=== PATIENT | male | born 1985 | race Two or more races ===

== ENCOUNTER 2020-04-08 07:37 | Outpatient (REF) | payer OTHER, SELFPAY ==
[2020-04-08 08:46] LABS: Eosinophils Absolute Auto 0.1 X10*3/uL (0.0-0.4); Eosinophils Percent Auto 2.6 % (0-4); Hematocrit 47.2 % (42-52); Lymphocytes Absolute Auto 1.4 X10*3/uL (1.2-4.9); Lymphocytes Percent Auto 28.5 % (20-40); Mean Corpuscular HGB Conc 33.9 g/dl (31.0-36.0); Mean Corpuscular Hemoglobin 30.7 pg (27.0-33.0); Mean Corpuscular Volume 90.4 fL (80-98); Mean Platelet Volume 10.4 fL (9.4-12.4); Monocytes Absolute Auto 0.4 X10*3/uL (0.1-1.2); Monocytes Percent Auto 7.9 % (2-11); Neutrophils Absolute Auto 3.1 X10*3/uL (2.0-8.3); Platelet Count 226 X10*3/uL (160-400); Red Blood Count 5.22 X10*6/uL (4.60-5.80); Red Cell Distribution Width 13.1 % (11.0-16.0); White Blood Count 5.1 X10*3/uL (4.8-10.8)
[2020-04-08 08:48] LABS: MANUAL DIFF FLAG NO
[2020-04-08 09:29] LABS: Alanine Aminotransferase 41 U/L (0-40); Albumin Level 4.4 g/dL (3.5-5.0); Alkaline Phosphatase 75 U/L (39-117); Anion Gap 9 (12-20); Aspartate Amino Transferase 22 U/L (5-37); Bilirubin Total 1.1 mg/dL (0.0-1.0); Blood Urea Nitrogen 17 mg/dL (9-16); Carbon Dioxide 30 mmol/L (22-29); Chloride 105 mmol/L (96-108); Cholesterol 182 mg/dL; Estimated Glomerular Filt Rate > 60; Glucose Fasting 88 mg/dL (60-99); HDL Cholesterol 45 mg/dL; LDL Cholesterol Calculated 115 mg/dl; Potassium 4.4 mmol/l (3.3-5.1); Sodium 140 mmol/L (135-145); Total Protein 6.9 g/dL (6.5-8.0); Triglycerides 114 mg/dL
[2020-04-08 09:48] LABS: Glucose Urine UA NEG (NEG); Leukocyte Esterase Urine NEG (NEG); Nitrite Urine NEG (NEG); PH 5.5 (5.0-8.0); Specific Gravity - Urine >= 1.030 (1.005-1.025); Urine Blood NEG (NEG); Urine Ketones NEG (NEG); Urine Protein NEG (NEG-TRACE)
[2020-04-08 09:56] LABS: Appearance Urine CLEAR; Color Urine YELLOW
== END 2020-04-08 07:38 | disposition home or self-care (01) ==
LOC: HO.LAB 07:37
PROVIDERS: PCP Internal Medicine; Visit Provider Internal Medicine
DX: Z00.00 Encounter for general adult medical examination without abnormal findings (principal); J45.20 Mild intermittent asthma, uncomplicated
CPT/HCPCS: 36415; 80053; 80061; 81003; 85025

== ENCOUNTER 2021-04-30 08:38 | Outpatient (REF) | payer OTHER, SELFPAY ==
--- NOTE | ~2021-04-30 | XR_ITS ---
EXAMINATION: XR CHEST CLINICAL INFORMATION: Cough COMPARISON: 07/15/2018 TECHNIQUE: 2 views of the chest were obtained. FINDINGS: No acute finding. No infiltrate. No effusion. The cardiac silhouette is within normal limits. The hilar regions do not appear pathologically enlarged. There is no effusion. XR/XR chest 2V IMPRESSION: No acute finding.
== END 2021-04-30 08:39 | disposition home or self-care (01) ==
LOC: HO.HMGCX 08:38
PROVIDERS: PCP Internal Medicine; Visit Provider Physician Assistant Medical
DX: R05.9 Cough, unspecified (principal)
CPT/HCPCS: 71046

== ENCOUNTER → 2021-06-26 07:48 | Outpatient (BNVA) | payer OTHER, SELFPAY | PROVIDERS: PCP Internal Medicine; Visit Provider Internal Medicine | DX: S16.1XXA Strain of muscle, fascia and tendon at neck level, initial encounter (principal); Y04.8XXA Assault by other bodily force, initial encounter; R20.0 Anesthesia of skin | CPT/HCPCS: 72040; 99203 ==

== ENCOUNTER → 2021-06-29 07:58 | Outpatient (BNVA) | payer OTHER, SELFPAY | PROVIDERS: PCP Internal Medicine; Visit Provider Internal Medicine | DX: S16.1XXA Strain of muscle, fascia and tendon at neck level, initial encounter (principal); Y04.8XXA Assault by other bodily force, initial encounter; R20.0 Anesthesia of skin | CPT/HCPCS: 99213 ==

== ENCOUNTER 2023-02-27 15:02 | Emergency (ER) | payer OTHER, SELFPAY ==
--- NOTE | ~2023-02-27 | XR_ITS ---
EXAMINATION: XR FINGER, LEFT CLINICAL INFORMATION: Thumb pain COMPARISON: None available. TECHNIQUE: Three views of the left thumb. FINDINGS: There is normal alignment. No acute fracture or dislocation. Joint spaces are preserved. Soft tissue swelling at the interphalangeal joint of the thumb. XR/XR finger LT min 2V IMPRESSION: 1. No acute bony abnormality of the left thumb. 2. Soft tissue swelling at the interphalangeal joint of the thumb.
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
[2023-02-27 15:21] VITALS: BP 138/87; BP 142/72; PULSE 77; PULSE 89; RESP 18; TEMP 36.8; O2SAT 97; O2SAT 99; BMI 27.3
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
== END 2023-02-27 18:03 | disposition home or self-care (01) ==
PROVIDERS: Emergency Provider Emergency Medicine; PCP Internal Medicine
DX: S60.012A Contusion of left thumb without damage to nail, initial encounter (principal); S13.4XXA Sprain of ligaments of cervical spine, initial encounter; M54.2 Cervicalgia; M79.645 Pain in left finger(s); R51.9 Headache, unspecified; M79.642 Pain in left hand; V43.52XA Car driver injured in collision with other type car in traffic accident, initial encounter; Y93.9 Activity, unspecified; Y92.9 Unspecified place or not applicable; Y99.0 Civilian activity done for income or pay
CPT/HCPCS: 70450; 73140; 99282; 99283

== ENCOUNTER → 2023-02-28 08:55 | Outpatient (BNVA) | payer OTHER, SELFPAY | PROVIDERS: PCP Internal Medicine; Visit Provider Internal Medicine | DX: S16.1XXA Strain of muscle, fascia and tendon at neck level, initial encounter (principal); S63.641A Sprain of metacarpophalangeal joint of right thumb, initial encounter; T23.011A Burn of unspecified degree of right thumb (nail), initial encounter; V89.0XXA Person injured in unspecified motor-vehicle accident, nontraffic, initial encounter; W22.19XA Striking against or struck by other automobile airbag, initial encounter | CPT/HCPCS: 99203 ==

== ENCOUNTER → 2023-03-02 09:44 | Outpatient (BNVA) | payer OTHER, SELFPAY | PROVIDERS: PCP Internal Medicine; Visit Provider Physician Assistant Medical | DX: S16.1XXA Strain of muscle, fascia and tendon at neck level, initial encounter (principal); S63.652A Sprain of metacarpophalangeal joint of right middle finger, initial encounter; V89.0XXA Person injured in unspecified motor-vehicle accident, nontraffic, initial encounter; T30.0 Burn of unspecified body region, unspecified degree; W22.19XA Striking against or struck by other automobile airbag, initial encounter | CPT/HCPCS: 99213 ==

== ENCOUNTER → 2023-03-10 09:31 | Outpatient (BNVA) | payer OTHER, SELFPAY | PROVIDERS: PCP Internal Medicine; Visit Provider Physician Assistant Medical | DX: S16.1XXA Strain of muscle, fascia and tendon at neck level, initial encounter (principal); S33.9XXA Sprain of unspecified parts of lumbar spine and pelvis, initial encounter; S63.612A Unspecified sprain of right middle finger, initial encounter; T30.0 Burn of unspecified body region, unspecified degree; W22.10XA Striking against or struck by unspecified automobile airbag, initial encounter; V49.20XA Unspecified car occupant injured in collision with unspecified motor vehicles in nontraffic accident, initial encounter | CPT/HCPCS: 99214 ==

== ENCOUNTER → 2023-03-24 09:29 | Outpatient (BNVA) | payer OTHER, SELFPAY | PROVIDERS: PCP Internal Medicine; Visit Provider Physician Assistant Medical | DX: S16.1XXD Strain of muscle, fascia and tendon at neck level, subsequent encounter (principal); S33.9XXD Sprain of unspecified parts of lumbar spine and pelvis, subsequent encounter; S63.612D Unspecified sprain of right middle finger, subsequent encounter; W22.1 Striking against or struck by automobile airbag | CPT/HCPCS: 99213 ==

== ENCOUNTER 2023-04-05 08:23 | Outpatient (AMB) | payer OTHER, SELFPAY ==
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
[2023-04-05 08:30] VITALS: BMI 27.3
== END 2023-04-05 08:54 | disposition home or self-care (01) ==
PROVIDERS: PCP Internal Medicine; Visit Provider Physician Assistant
DX: S53.439A Radial collateral ligament sprain of unspecified elbow, initial encounter (principal); S61.209A Unspecified open wound of unspecified finger without damage to nail, initial encounter
CPT/HCPCS: 99203

== ENCOUNTER → 2023-04-05 08:23 | Outpatient (BNVA) | payer OTHER, SELFPAY | PROVIDERS: PCP Internal Medicine; Visit Provider Physician Assistant | DX: S69.91XA Unspecified injury of right wrist, hand and finger(s), initial encounter (principal); S53.439A Radial collateral ligament sprain of unspecified elbow, initial encounter | CPT/HCPCS: 99202 ==

== ENCOUNTER → 2023-04-07 09:23 | Outpatient (BNVA) | payer OTHER, SELFPAY | PROVIDERS: PCP Internal Medicine; Visit Provider Physician Assistant Medical | DX: S16.1XXD Strain of muscle, fascia and tendon at neck level, subsequent encounter (principal); S39.012D Strain of muscle, fascia and tendon of lower back, subsequent encounter; S63.612D Unspecified sprain of right middle finger, subsequent encounter; V89.0XXD Person injured in unspecified motor-vehicle accident, nontraffic, subsequent encounter; W22.1 Striking against or struck by automobile airbag | CPT/HCPCS: 99213 ==

== ENCOUNTER 2023-04-28 09:00 | Outpatient (RCR) | payer OTHER, SELFPAY ==
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
--- NOTE | 2023-05-02 09:12 | MHC.OT.DC ---
[address] [phone] F: [phone] Occupational Therapy Discharge Note Patient Name: Cody Trujillo Provider: Jewel Sears Diagnosis: Right middle finger PIPj RCL strain Date of Surgery: 02/27/23 Date of Evaluation: 04/21/23 Date of Discharge: 04/28/23 Treatments to Date: 3 Cancellations to Date: 0 No Shows to Date: 0 Discharge Status: Achieved Goals Improved Function Discharge Summary: Goals met. Leaf Blender with rapid exchange R 100 lb L 105 lb (Submax with static stamping die maker bench at 60 lb) Pain free with lateral stress to right MF Deferred wt lifting due to reports on neck pain at 7/10 constant, and inc with lifting 30 last appt Electronically Signed By: Camila Robertson OT CHT CLT Reviewed/agree with student documentation: Therapist: Please Sign and return to therapist, thank you for your referral.
== END 2023-05-02 09:13 | disposition home or self-care (01) ==
LOC: HO.OT 09:00
PROVIDERS: PCP Internal Medicine; Visit Provider Physician Assistant
DX: S53.431D Radial collateral ligament sprain of right elbow, subsequent encounter (principal); S61.202D Unspecified open wound of right middle finger without damage to nail, subsequent encounter
CPT/HCPCS: 97110; 97165; 97530

== ENCOUNTER → 2023-04-28 09:41 | Outpatient (BNVA) | payer OTHER, SELFPAY | PROVIDERS: PCP Internal Medicine; Visit Provider Physician Assistant Medical | DX: S16.1XXD Strain of muscle, fascia and tendon at neck level, subsequent encounter (principal); S39.012D Strain of muscle, fascia and tendon of lower back, subsequent encounter; S63.632D Sprain of interphalangeal joint of right middle finger, subsequent encounter; W22.1 Striking against or struck by automobile airbag | CPT/HCPCS: 72052; 99214 ==

== ENCOUNTER 2023-04-29 10:00 | Outpatient (RCR) | payer OTHER, SELFPAY ==
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
== END 2024-02-06 12:49 | disposition home or self-care (01) ==
LOC: HO.PT 10:00
PROVIDERS: PCP Internal Medicine; Visit Provider Physician Assistant Medical
DX: S16.1XXD Strain of muscle, fascia and tendon at neck level, subsequent encounter (principal); W22.1 Striking against or struck by automobile airbag
CPT/HCPCS: 97012; 97014; 97110; 97140; 97161; 97530

== ENCOUNTER 2023-05-05 09:08 | Outpatient (AMB) | payer OTHER, SELFPAY ==
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
[2023-05-05 09:13] VITALS: BMI 27.3
== END 2023-05-05 10:12 | disposition home or self-care (01) ==
PROVIDERS: PCP Internal Medicine; Visit Provider Physician Assistant
DX: S53.431A Radial collateral ligament sprain of right elbow, initial encounter (principal); S61.202A Unspecified open wound of right middle finger without damage to nail, initial encounter
CPT/HCPCS: 99212

== ENCOUNTER → 2023-05-05 09:08 | Outpatient (BNVA) | payer OTHER, SELFPAY | PROVIDERS: PCP Internal Medicine; Visit Provider Physician Assistant | DX: S53.431D Radial collateral ligament sprain of right elbow, subsequent encounter (principal); S61.209D Unspecified open wound of unspecified finger without damage to nail, subsequent encounter | CPT/HCPCS: 99212 ==

== ENCOUNTER 2023-05-19 09:31 | Outpatient (REF) | payer OTHER, SELFPAY ==
--- NOTE | ~2023-05-19 | XR_ITS ---
EXAMINATION: XR CERVICAL SPINE CLINICAL INFORMATION: Cervicalgia COMPARISON: 04/28/2013 TECHNIQUE: 3 views of cervical spine FINDINGS: There is stable cervical straightening with mild narrowing of C3-C4, C4-C5, C5-C6 intervertebral disc spaces and there is no evidence of spondylolysis or spondylolisthesis. Soft tissues unremarkable. XR/XR cervical spine 3V IMPRESSION: No interval change
== END 2023-05-19 09:32 | disposition home or self-care (01) ==
LOC: HO.HOSX 09:31
PROVIDERS: Visit Provider Physical Medicine & Rehabilitation
DX: Z13.89 Encounter for screening for other disorder (principal)

== ENCOUNTER → 2023-05-24 11:07 | Outpatient (BNVA) | payer OTHER, SELFPAY | PROVIDERS: PCP Internal Medicine; Visit Provider Physician Assistant Medical | DX: S16.1XXD Strain of muscle, fascia and tendon at neck level, subsequent encounter (principal); W22.1 Striking against or struck by automobile airbag | CPT/HCPCS: 99213 ==

== ENCOUNTER 2023-05-25 10:11 | Outpatient (AMB) | payer OTHER, SELFPAY ==
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
[2023-05-25 10:35] VITALS: BMI 27.3
== END 2023-05-25 11:06 | disposition home or self-care (01) ==
PROVIDERS: PCP Internal Medicine; Visit Provider Physical Medicine & Rehabilitation
DX: M54.12 Radiculopathy, cervical region (principal); M79.18 Myalgia, other site
CPT/HCPCS: 99204

== ENCOUNTER → 2023-05-25 10:11 | Outpatient (BNVA) | payer OTHER, SELFPAY | PROVIDERS: PCP Internal Medicine; Visit Provider Physical Medicine & Rehabilitation | DX: M54.12 Radiculopathy, cervical region (principal); M79.18 Myalgia, other site | CPT/HCPCS: 72040; 99202 ==

== ENCOUNTER 2023-06-05 08:40 | Outpatient (REF) | payer OTHER, SELFPAY ==
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
== END 2023-06-05 08:41 | disposition home or self-care (01) ==
LOC: HO.MRI 08:40
PROVIDERS: PCP Internal Medicine; Visit Provider Internal Medicine
DX: M54.2 Cervicalgia (principal); R20.0 Anesthesia of skin
CPT/HCPCS: 72141

== ENCOUNTER → 2023-06-08 15:35 | Outpatient (BNVA) | payer OTHER, SELFPAY | PROVIDERS: PCP Internal Medicine; Visit Provider Physician Assistant Medical | DX: M50.10 Cervical disc disorder with radiculopathy, unspecified cervical region (principal); S16.1XXD Strain of muscle, fascia and tendon at neck level, subsequent encounter; V89.0XXD Person injured in unspecified motor-vehicle accident, nontraffic, subsequent encounter; W22.1 Striking against or struck by automobile airbag | CPT/HCPCS: 99213 ==

== ENCOUNTER 2023-06-10 16:07 | Outpatient (REF) | payer OTHER, SELFPAY ==
[2023-06-10 16:15] LABS: MANUAL DIFF FLAG NO
[2023-06-10 16:20] LABS: Basophils Percent Auto 0.2 % (0-2); Eosinophils Percent Auto 0.6 % (0-4); Hemoglobin 17.4 g/dl (14.0-18.0); Imm Gran Abs Auto 0.01 X10*3/uL (0.00-0.03); Imm Gran Pct Auto 0.2 % (0.0-0.4); Lymphocytes Absolute Auto 1.4 X10*3/uL (1.2-4.9); Lymphocytes Percent Auto 25.3 % (20-40); Mean Corpuscular HGB Conc 35.5 g/dl (31.0-36.0); Mean Corpuscular Hemoglobin 31.3 pg (27.0-33.0); Mean Corpuscular Volume 88.1 fL (80.0-98.0); Mean Platelet Volume 11.2 fL (9.4-12.4); Monocytes Absolute Auto 0.4 X10*3/uL (0.1-1.2); Monocytes Percent Auto 7.9 % (2-11); Neutrophils Absolute Auto 3.6 x10*3/uL (2.0-8.3); Neutrophils Percent Auto 65.8 % (45-73); Platelet Count 250 X10*3/uL (160-400); Red Blood Count 5.56 X10*6/uL (4.60-5.80); White Blood Count 5.5 X10*3/uL (4.8-10.8)
[2023-06-10 16:31] LABS: Appearance Urine Clear; Color Urine Dark Yellow; Glucose Urine UA Negative (Negative); Leukocyte Esterase Urine Negative (Negative); Nitrite Urine Negative (Negative); PH 6.5 (5.0-9.0); Specific Gravity - Urine >= 1.030 (1.005-1.025); Urine Blood Negative (Negative); Urine Ketones Trace mg/dL (Negative); Urine Protein Negative (Neg-Trace)
[2023-06-10 16:36] LABS: Bacteria Urine None Seen (None Seen); Hyaline Casts Urine 0-2 /LPF (0-2); RBC Urine 0-2 /HPF (0-2); Squamous Epithelial Cell Urine 0-2 /HPF (0-2); WBC Urine 0-5 /HPF (0-5)
[2023-06-10 16:40] LABS: Alanine Aminotransferase 18 U/L (0-40); Albumin Level 4.6 g/dL (3.5-5.0); Alkaline Phosphatase 71 U/L (39-117); Anion Gap 14 (12-20); Aspartate Amino Transferase 16 U/L (5-37); Bilirubin Total 1.2 mg/dL (0.0-1.0); Blood Urea Nitrogen 16 mg/dL (9-16); Calcium 9.6 mg/dL (8.4-10.2); Carbon Dioxide 27 mmol/L (22-29); Chloride 105 mmol/L (96-108); Estimated Glomerular Filt Rate > 60; Glucose Fasting 86 mg/dL (60-99); Iron 119 mcg/dL (45-160); Percent Iron Saturation 46 % (15-50); Potassium 3.5 mmol/L (3.3-5.1); Sodium 142 mmol/L (135-145); Total Iron Binding Capacity 257 mcg/dL (228-428); Total Protein 7.3 g/dL (6.5-8.0); Unsaturated Iron Binding 138 ug/dL
== END 2023-06-10 16:08 | disposition home or self-care (01) ==
LOC: HO.LNP 16:07
PROVIDERS: Visit Provider Internal Medicine
DX: R93.89 Abnormal findings on diagnostic imaging of other specified body structures (principal); R63.4 Abnormal weight loss
CPT/HCPCS: 80053; 81001; 83540; 84443; 85025

== ENCOUNTER → 2023-06-27 09:21 | Outpatient (BNVA) | payer OTHER, SELFPAY | PROVIDERS: PCP Internal Medicine; Visit Provider Physician Assistant Medical | DX: M54.2 Cervicalgia (principal) | CPT/HCPCS: 99213 ==

== ENCOUNTER 2023-07-13 11:58 | Outpatient (AMB) | payer OTHER, SELFPAY ==
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
== END 2023-07-13 12:24 | disposition home or self-care (01) ==
PROVIDERS: PCP Internal Medicine; Visit Provider Physical Medicine & Rehabilitation
DX: M50.20 Other cervical disc displacement, unspecified cervical region (principal); M54.12 Radiculopathy, cervical region; M79.18 Myalgia, other site
CPT/HCPCS: 99214

== ENCOUNTER → 2023-07-13 11:58 | Outpatient (BNVA) | payer OTHER, SELFPAY | PROVIDERS: PCP Internal Medicine; Visit Provider Physical Medicine & Rehabilitation | DX: M50.20 Other cervical disc displacement, unspecified cervical region (principal); M54.12 Radiculopathy, cervical region; M79.18 Myalgia, other site | CPT/HCPCS: 99212 ==

== ENCOUNTER → 2023-07-20 08:57 | Outpatient (BNVA) | payer OTHER, SELFPAY | PROVIDERS: PCP Internal Medicine; Referring Provider Physical Medicine & Rehabilitation; Visit Provider Physician Assistant ==

== ENCOUNTER → 2023-07-20 08:57 | Outpatient (BNVA) | payer OTHER, SELFPAY | PROVIDERS: PCP Internal Medicine; Visit Provider Physician Assistant ==

== ENCOUNTER → 2023-08-01 09:37 | Outpatient (BNVA) | payer OTHER, SELFPAY | PROVIDERS: PCP Internal Medicine; Visit Provider Physician Assistant Medical | DX: M54.2 Cervicalgia (principal) | CPT/HCPCS: 99213 ==

== ENCOUNTER 2023-08-19 13:53 | Outpatient (AMB) | payer OTHER, SELFPAY ==
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
[2023-08-19 13:58] VITALS: BP 132/83; PULSE 89; O2SAT 97; BMI 23.3
== END 2023-08-19 14:49 | disposition home or self-care (01) ==
PROVIDERS: PCP Internal Medicine; Visit Provider Nurse Practitioner Family
DX: M79.18 Myalgia, other site (principal); M54.12 Radiculopathy, cervical region; M50.20 Other cervical disc displacement, unspecified cervical region
CPT/HCPCS: 99204

== ENCOUNTER → 2023-08-19 13:53 | Outpatient (BNVA) | payer OTHER, SELFPAY | PROVIDERS: PCP Internal Medicine; Visit Provider Nurse Practitioner Family | DX: M79.18 Myalgia, other site (principal); M54.12 Radiculopathy, cervical region; M50.20 Other cervical disc displacement, unspecified cervical region | CPT/HCPCS: 99202 ==

== ENCOUNTER → 2023-08-31 09:33 | Outpatient (BNVA) | payer OTHER, SELFPAY | PROVIDERS: PCP Internal Medicine; Visit Provider Physician Assistant Medical | DX: M54.2 Cervicalgia (principal) | CPT/HCPCS: 99213 ==

== ENCOUNTER → 2023-10-31 09:30 | Outpatient (BNVA) | payer OTHER, SELFPAY | PROVIDERS: PCP Internal Medicine; Visit Provider Physician Assistant Medical | DX: M50.10 Cervical disc disorder with radiculopathy, unspecified cervical region (principal) | CPT/HCPCS: 99213 ==

== ENCOUNTER → 2024-01-04 09:26 | Outpatient (BNVA) | payer OTHER, SELFPAY | PROVIDERS: PCP Internal Medicine; Visit Provider Physician Assistant Medical | DX: M54.2 Cervicalgia (principal); G56.01 Carpal tunnel syndrome, right upper limb; R20.0 Anesthesia of skin | CPT/HCPCS: 99213 ==

== ENCOUNTER 2024-01-10 06:16 | Outpatient (REF) | payer OTHER, SELFPAY | END 2024-01-10 06:17 | disposition home or self-care (01) | LOC: CF 06:16 | PROVIDERS: Visit Provider Anesthesiology | DX: M54.12 Radiculopathy, cervical region (principal); M79.18 Myalgia, other site; M50.20 Other cervical disc displacement, unspecified cervical region | CPT/HCPCS: 62321; J1100; Q9967 ==

== ENCOUNTER 2024-01-10 10:56 | Outpatient (AMB) | payer OTHER, SELFPAY ==
--- NOTE | 2024-01-10 11:17 | A.OFFVIS_ITS ---
Vital Signs 01/10/24 11:56 01/10/24 11:57 Height 5 ft 5 in 5 ft 5 in Weight 140 lb 140 lb BMI 23.3 23.3 BP 110/62 117/66 Blood Pressure Location Lt brachial Lt brachial Position Sitting Sitting Respiration 16 16 Pulse 63 60 Pulse Source Pulse Oximeter Pulse Oximeter Pulse Oximetry (%) 100 100 Oxygen Delivery Method Room Air Room Air Comment pre-op post-op Intake Visit Reasons: RIGHT PARASAGGITAL INTERLAMINAR C7-T1 MYLES Allergies No Known Allergies Allergy (Verified 01/10/24 11:58) PFSH Medical History Cervical disc herniation Cervical radiculopathy Social History Patient Tobacco Use Status: Never used Tobacco Current occupation: [employer], 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 Physical Exam Vital Signs: Last Vital Signs Pulse 60 01/10/24 11:57 Resp 16 01/10/24 11:57 BP 117/66 01/10/24 11:57 Pulse Ox 100 01/10/24 11:57 Oxygen Delivery Method Room Air 01/10/24 11:57 BMI result Body Mass Index 23.3 Assessment & Plan Assessment & Plan (1) Myofascial pain: Code(s): M79.18 - Myalgia, other site Category: Medical (2) Cervical radiculopathy: Code(s): M54.12 - Radiculopathy, cervical region Category: Medical (3) Cervical disc herniation: Code(s): M50.20 - Other cervical disc displacement, unspecified cervical region Category: Medical (4) Cervicalgia: Code(s): M54.2 - Cervicalgia Category: Medical Plan Interlaminar C7-T1 parasagittal right epidural steroid injection. Informed consent was explained thoroughly to the patient.? All questions about benefits and risks for the procedure were answered. Time-out was performed delineating correct side and site of the procedure name date of of the patient allergies of the patient. Patient came to the operating room and was positioned prone on the operating table with the pillow under the abdomen. The upper back and entire posterior neck were prepped with ChloraPrep and draped with self adhesive sterile utility towels. C-arm was brought over the operating field and picture of the lamina of the T 1 vertebra on the right as close to the spinous process of the T1 as possible was chosen as the starting point for the injection. The projection of the point of interest to the skin was injected with lidocaine 1%, after that 20 gauge 10 cm Tuohy was inserted through the point on the skin and advanced to were the epidural space on anterior posterior and contralateral oblique views. Loss of resistance to air technique was used to locate the epidural space. When loss of resistance was felt the position of the needle was verified to be on the contralateral oblique view just 1 mm outside of the interlaminar line. Injection of the contrast was performed delineating epidural space. After that injection of the normal saline 6 cc mix ed with Decadron 10 mg and with the addition of trace amount of local anesthetic lidocaine no more than 30 drops was injected into the epidural space. During the injection patient was instructed to take a slow deep breath in, after that exhale, and hold his breath with injection. Upon completion of the injection the needle was withdrawn Band-Aid was applied. The patient tolerated the procedure well. Orders: Orders FL guidance in treatment room Today M54.12 - Radiculopathy, cervical region Coding Level of Care Code Procedure Only Diagnoses Myofascial pain M79.18 Cervical radiculopathy M54.12 Cervical disc herniation M50.20 Cervicalgia M54.2
[2024-01-10 11:56] VITALS: BP 110/62; PULSE 63; RESP 16; O2SAT 100; BMI 23.3
[2024-01-10 11:57] VITALS: BP 117/66; PULSE 60; RESP 16; O2SAT 100; BMI 23.3
== END 2024-01-10 11:55 | disposition home or self-care (01) ==
LOC: HO.PMCPRC 10:56
PROVIDERS: PCP Internal Medicine; Visit Provider Anesthesiology
DX: M54.12 Radiculopathy, cervical region (principal)
CPT/HCPCS: 62321

== ENCOUNTER 2024-01-31 10:55 | Outpatient (AMB) | payer OTHER, SELFPAY ==
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
[2024-01-31 11:18] VITALS: BP 122/72; PULSE 76; O2SAT 99; BMI 23.3
== END 2024-01-31 11:44 | disposition home or self-care (01) ==
PROVIDERS: PCP Internal Medicine; Visit Provider Nurse Practitioner Family
DX: M54.12 Radiculopathy, cervical region (principal); M50.20 Other cervical disc displacement, unspecified cervical region; M54.2 Cervicalgia; M50.30 Other cervical disc degeneration, unspecified cervical region; M47.812 Spondylosis without myelopathy or radiculopathy, cervical region
CPT/HCPCS: 99214; G2211

== ENCOUNTER → 2024-01-31 10:55 | Outpatient (BNVA) | payer OTHER, SELFPAY | PROVIDERS: PCP Internal Medicine; Visit Provider Nurse Practitioner Family | DX: M54.12 Radiculopathy, cervical region (principal); M50.20 Other cervical disc displacement, unspecified cervical region; M50.30 Other cervical disc degeneration, unspecified cervical region; M47.812 Spondylosis without myelopathy or radiculopathy, cervical region; Z98.890 Other specified postprocedural states | CPT/HCPCS: 99212 ==

== ENCOUNTER → 2024-03-05 09:27 | Outpatient (BNVA) | payer OTHER, SELFPAY | PROVIDERS: PCP Internal Medicine; Visit Provider Physician Assistant Medical | DX: M54.2 Cervicalgia (principal); G56.01 Carpal tunnel syndrome, right upper limb; S63.612D Unspecified sprain of right middle finger, subsequent encounter; V89.0XXD Person injured in unspecified motor-vehicle accident, nontraffic, subsequent encounter | CPT/HCPCS: 99213 ==

== ENCOUNTER 2024-05-01 06:13 | Outpatient (REF) | payer OTHER, SELFPAY ==
--- NOTE | ~2024-05-01 | FL_ITS ---
EXAMINATION: FL GUIDANCE ONLY HISTORY: M47.812 - Spondylosis without myelopathy or radiculopathy, cervical region COMPARISON: None available. TECHNIQUE: Fluoroscopy time: 0.4 minutes. Cumulative Dose: 0.941 mGy. DAP: 0.0163 uGy-m2 (microgray-meter squared). Images: 6. FINDINGS: Images demonstrate needles and contrast material in the neck bilaterally. FL/FL guidance in treatment room IMPRESSION: Fluoroscopy during procedure. Please see procedure report for additional information. Electronically signed by: Blake Weinstein MD 05/01/2024 02:38 PM [facility]
== END 2024-05-01 06:14 | disposition home or self-care (01) ==
LOC: CF 06:13
PROVIDERS: Visit Provider Anesthesiology
DX: M79.18 Myalgia, other site (principal); M47.812 Spondylosis without myelopathy or radiculopathy, cervical region; M54.12 Radiculopathy, cervical region; M50.20 Other cervical disc displacement, unspecified cervical region
CPT/HCPCS: 64490; J2003; J2795; Q9967

== ENCOUNTER 2024-05-01 08:06 | Outpatient (AMB) | payer OTHER, SELFPAY ==
[2024-05-01 08:14] VITALS: BP 103/74; PULSE 65; RESP 16; O2SAT 98
--- NOTE | 2024-05-01 08:14 | A.OFFVIS_ITS ---
Vital Signs 05/01/24 08:14 05/01/24 08:54 BP 103/74 114/72 Blood Pressure Location Lt brachial Lt brachial Position Sitting Sitting Respiration 16 16 Pulse 65 68 Pulse Source Pulse Oximeter Pulse Oximeter Pulse Oximetry (%) 98 97 Oxygen Delivery Method Room Air Room Air Intake Visit Reasons: BILATERAL DX C4, C5, C6 MBB/ATIVAN REQUESTED Allergies No Known Allergies Allergy (Verified 05/01/24 08:14) Medication List - Last Reconciled 05/01/24 by Cortney Bernstein LPN acetaminophen (Tylenol Extra Strength) 500 mg PO Q6H PRN albuterol sulfate 90 mcg/actuation 2 puffs inhalation Q4-6H PRN diclofenac sodium 1% (Arthritis Pain (diclofenac)) 4 grams topical QID gabapentin 300 mg PO TID 30 days ibuprofen 600 mg PO Q6H PRN lidocaine 5% 1 patch topical DAILY lorazepam (Ativan) 1 mg PO ONCE methocarbamol 750 mg PO Q8H PRN 30 days PFSH Medical History Cervical disc herniation Cervical radiculopathy Social History Patient Tobacco Use Status: Never used Tobacco 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, 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 Physical Exam Vital Signs: Last Vital Signs Pulse 68 05/01/24 08:54 Resp 16 05/01/24 08:54 BP 114/72 05/01/24 08:54 Pulse Ox 97 05/01/24 08:54 Oxygen Delivery Method Room Air 05/01/24 08:54 Assessment & Plan Assessment & Plan (1) Myofascial pain: Code(s): M79.18 - Myalgia, other site Category: Medical (2) Cervical radiculopathy: Code(s): M54.12 - Radiculopathy, cervical region Category: Medical (3) Cervical disc herniation: Code(s): M50.20 - Other cervical disc displacement, unspecified cervical region Category: Medical (4) Cervicalgia: Code(s): M54.2 - Cervicalgia Category: Medical (5) Spondylosis of cervical region without myelopathy or radiculopathy: Code(s): M47.812 - Spondylosis without myelopathy or radiculopathy, cervical region Category: Medical Plan Diagnostic medial branch block C4-C5 C6 bilateral. Informed consent was explained thoroughly to the patient.? All questions about benefits and risks for the procedure were answered. Time-out was performed delineating correct side and site of the procedure name date of of the patient allergies of the patient. Patient came to the operating room and was positioned prone on the operating table with the pillow under the chest. The upper back and entire posterior neck were prepped with ChloraPrep and draped with self adhesive sterile utility towels. C-arm was brought over the operating field and picture of C4, C5, C6 vertebra were sequentially obtain on the screen. The point of interest were delineated as the lateral masses of the above- mentioned vertebra. The waistline of each lateral mass was chosen as the point of needle advancement. The projection of the point of interest to the skin was injected with small amount of lidocaine 2% mixed with ropivacaine 0.5%. After that 3 needles 3-1/2 inch long 22 gauge were inserted through the skin wheals and advanced over the point of interest 1st on the right and then on the left side. When tips of the needles gently contacted the bone injection of the contrast was performed delineating no intravascular and no intrathecal uptake of the contrast. After that small amount of ropivacaine 0.5% no more than 1 mL was in a injected at each needle location. The patient tolerated the procedure w ell. Upon completion of the injections the needles were removed and sterile Band-Aids were applied. Patient was taken outside of the operating room to recovery room where he recovered uneventfully, he experiences slight dizziness after the procedure which very soon was terminated. Orders: Orders FL guidance in treatment room Today M47.812 - Spondylosis without myelopathy or radiculopathy, cervical region Medications: New lorazepam (Ativan) Take 30 minutes prior to arrival to procedure 1 mg PO ONCE 1 tab 0RF anxiety Coding Level of Care Code Procedure Only Diagnoses Myofascial pain M79.18 Cervical radiculopathy M54.12 Cervical disc herniation M50.20 Cervicalgia M54.2 Spondylosis of cervical region without myelopathy or radiculopathy M47.812
[2024-05-01 08:54] VITALS: BP 114/72; PULSE 68; RESP 16; O2SAT 97
== END 2024-05-01 09:12 | disposition home or self-care (01) ==
LOC: HO.PMCPRC 08:06
PROVIDERS: PCP Internal Medicine; Visit Provider Anesthesiology
DX: M54.12 Radiculopathy, cervical region (principal); M50.20 Other cervical disc displacement, unspecified cervical region; M79.18 Myalgia, other site; M47.812 Spondylosis without myelopathy or radiculopathy, cervical region
CPT/HCPCS: 64490

== ENCOUNTER 2024-05-08 10:02 | Outpatient (AMB) | payer OTHER, SELFPAY ==
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
[2024-05-08 10:05] VITALS: BP 136/72; PULSE 66; BMI 22.6
--- OUTSIDE RECORDS SUMMARY | 2024-05-08 10:48 | XMS_ITS ---
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 Yes How often did you have a dri nk containing alcohol in the past year? 2 to 4 times a month (2 points) How many drinks did you have on a typical day when you were drinking in the past year? 1 or 2 drinks (0 point) How often did you have 6 or more drinks on one occasion in the past year? Never (0 point) Points 2 Interpretation Negative Encounters Encounter Location Date Provider Diagnosis Lance Pino MD [address] [place] [phone] 07/05/2023 Lance Pino Plan Of Treatment No Information Progress Notes * Alexandr AMESinDOB: 6 (39 yo M)Acc No.[id number]:07/05/2023 Progress Notes Patient:?Cody AMES Provider:?Lance Pino MD :1985???Age:38 Y???Sex:Male Ty e:07/05/2023 Address:[address] [place], [place] [id number] Subjective: * Chief Complaints: * ???1. Annual. 2. No Covid sy mptoms. * HPI: ???Depression Screening:?PHQ-9?Little interest or pleasure in doing things?Not at all,?Feeling down, depressed, or hopeless?Not at all,?Trouble falling or staying asleep, or sleeping too much?Not at all,?Feeling tired or having little energy?Not at all,?Poor appetite or overeating?Not at all,?Feeling bad about yourself or that you are a failure, or have let yourself or your family down?Not at all,?Trouble concentrating on things, such as reading the newspaper or watching television?Not at all,?Moving or speaking so slowly that other people could have noticed; or the opposite, being so fidgety or restless that you have been moving around a lot more than usual?Not at all,?Thoughts that you would be better off or of hurting yourself in some way?Not at all,?Total Score?0.?Communication Needs:?Communication Needs?Does the patient have a hearing impairment?No,?Does the patient have a vision impairment??No,?Does the patient have a cognition impairment??No.?SDOH Questions:?SDOH Questions?In the past year have you been worried about losing housing??No,?In the past year have you or any family members you live with been unable to get any of the following when it was really needed? Check all that apply:?None.? * Medical History:?Medical His tory Verified. * Family History:?Father: unkn own.?Mother: unknown.?Maternal Grand Father: alive 76 yrs.?Maternal Grand Mother: alive 70 yrs, diagnosed with Alzheimer disease.?1 brother(s) , 2 sister(s) . 2 son(s) , 2 daughter(s) - healthy. .? No pertinent family medical history. * Social History:?Tobacco Use:?Tobacco Use/Smoking?Patient is a?nonsmoker,?Additional Findings: Tobacco Non-User?Current non-smoker, currently using no form of tobacco.?Drugs/Alcohol:?Alcohol Screen?Did you have a drink containing alcohol in the past year??Yes,?How often did you have a drink containing alcohol in the past year??2 to 4 times a month (2 points),?How many drinks did you have on a typical day when you were drinking in the past year??1 or 2 drinks (0 point),?How often did you have 6 or more drinks on one occasion in the past year??Never (0 point),?Points?2,?Interpretation?Negative.?Miscellaneous:?Caffeine: yes, frequency: 1 cup a week. Children: yes. Community involvements: yes, active in sports or recreation activities. Exercise: yes, weight lifting and cardio 5 days a week. Housing: owning. Living with: family. Marital status: . Occupation: works full-time. Pets: dog x1. * Allergies:?N.K.D.A. Objective: * Vitals:? Assessment: Plan: * Treatment: * * The named appointment provid er may or may not be the originator of this progress note, and it is not deemed complete until electronically signed by the appointment provider. Sign off status: Pending * Provider:?Lance Pino MD Date:?0 07/05/2023 Generated for Fernando frankel/Saniya/Velasquezsmitting on:?05/08/2024 10:48 AM EST History and Physical Notes * HPI (History of Present Illness) Category Sub-Category Detail Notes Category Not es Depression Screening PHQ-9 Little inte rest or pleasure in doing things: Not at all Feeling down, depressed, or hopeless: No t at all Trouble falling or staying asleep, or sl eeping too much: Not at all Feeling tired or having little energy: N ot at all Poor appetite or overeating: Not at all Feeling bad about yourself o r that you are a failure, or have let yourself or your family down: Not at all Trouble concentrating on thi ngs, such as reading the newspaper or watching television: Not at all Moving or speaking so slowly that other people could have noticed; or the opposite, being so fidgety or restless that you have been moving around a lot more than usual: Not at all Thoughts that you would be b roxanna off or of hurting yourself in some way: Not at all Total Score: 0 SDOH Questions SDOH Questions In the past year have you been worried about losing housing?: No In the past year have you or any family members you live with been unable to get any of the following when it was really needed? Check all that apply:: None Communication Needs Communication Needs Does the patient have a hearing impairment: No Does the patient have a vision impairmen t?: No Does the patient have a cognition impair ment?: No
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
--- OUTSIDE RECORDS SUMMARY | 2024-05-08 10:48 | XMS_ITS ---
Author Organization Lance Pino MD Address [address] [place] [phone] Care Team Providers Care Chain Testing Machine Operator Name Role Phone Lance Pino Primary Care Provider REASON FOR VISIT fasting labs Encounters Encounter Location Date Provider Diagnosis Lance Pino MD [address] [place] [phone] 06/30/2023 Lance Pino Blood tests for routine general physical examination Z00.00 and Testosterone deficiency in male E29.1 Assessments Encounter Date Diagnosis (ICD Code) Assessment Notes Treatment Notes Treatment Clinical Notes Section Notes 06/30/2023 Blood tests for routine general physical examination (ICD-10 - Z00.00) 06/30/2023 Testosterone deficiency in male (ICD-10 - E29.1) Plan Of Treatment No Information Progress Notes * Alexandr AMESinDOB: 6 (39 yo M)Acc No.[id number]:06/30/2023 Progress Note Patient:?Cody AMES Provider:?Lance Pino MD :1985???Age:38 Y???Sex:Male Ty e:06/30/2023 Address:[address] [place], [place] [phone] Subjective: * Chief Complaints: * ???1. Fasting labs. * Medical History:? Objective: * Vitals:? Assessment: * Assessment: 1.?Blood tests for routine g eneral physical examination - Z00.00 (Primary)???2.?Testosterone deficiency in male - E29.1??? Plan: * Treatment: 2.?Testosterone deficiency i n male?LAB: Complete Blood Count Auto Diff (Order Cancelled) ?LAB: Comprehensive [place]. Panel Fast (Order Cancelled) ?LAB: Lipid Panel (Order Cancelled) ?LAB: Testosterone, Total (Order Cancelled) ?LAB: Microalbumin, Random (Order Cancelled) ?LAB: UA ClnCatch+Micro w/rflx Cult (Order Cancelled) * * The named appointment provid er may or may not be the originator of this progress note, and it is not deemed complete until electronically signed by the appointment provider. Sign off status: Pending * Provider:?Lance Pino MD Date:?0 06/30/2023 Generated for Fernando frankel/Saniya/Gerarditting on:?05/08/2024 10:48 AM EST
--- OUTSIDE RECORDS SUMMARY | 2024-05-08 10:49 | XMS_ITS ---
Author Organization Lance Pino MD Address [address] [place] [phone] Care Team Providers Care Director Child Development Center Name Role Phone Lance Pino Primary Care Provider REASON FOR VISIT 6 week Encounters Encounter Location Date Provider Diagnosis Lance Pino MD [address] [place] [phone] 07/21/2023 Lance Pino Plan Of Treatment No Information Progress Notes * Alexandr AMESinDOB: 6 (39 yo M)Acc No.[id number]:07/21/2023 Progress Notes Patient:?Cody AMES Provider:?Lance Pino MD :1985???Age:38 Y???Sex:Male Ty e:07/21/2023 Address:[address] [place], [place] [phone] Subjective: * Chief Complaints: * ???1. 6 week. * Medical History:? Objective: * Vitals:? Assessment: Plan: * Treatment: * * The named appointment provid er may or may not be the originator of this progress note, and it is not deemed complete until electronically signed by the appointment provider. Sign off status: Pending * Provider:?Lance Pino MD Date:?0 07/21/2023 Generated for Fernando frankel/Saniya/Gerarditting on:?05/08/2024 10:48 AM EST
== END 2024-05-08 10:39 | disposition home or self-care (01) ==
PROVIDERS: PCP Internal Medicine; Visit Provider Nurse Practitioner Family
DX: M54.12 Radiculopathy, cervical region (principal); M50.20 Other cervical disc displacement, unspecified cervical region; M50.30 Other cervical disc degeneration, unspecified cervical region; M47.812 Spondylosis without myelopathy or radiculopathy, cervical region; M79.18 Myalgia, other site
CPT/HCPCS: 99214; G2211

== ENCOUNTER → 2024-05-08 10:02 | Outpatient (BNVA) | payer OTHER, SELFPAY | PROVIDERS: PCP Internal Medicine; Visit Provider Nurse Practitioner Family | DX: M54.12 Radiculopathy, cervical region (principal); M50.20 Other cervical disc displacement, unspecified cervical region; M50.30 Other cervical disc degeneration, unspecified cervical region; M47.812 Spondylosis without myelopathy or radiculopathy, cervical region; M79.18 Myalgia, other site; Z98.890 Other specified postprocedural states | CPT/HCPCS: 99212 ==

== ENCOUNTER 2024-08-17 08:18 | Day surgery (SDC) | payer OTHER, SELFPAY ==
--- OUTSIDE RECORDS SUMMARY | 2024-08-15 11:59 | XMS_ITS ---
Author Organization Lance Pino MD Address [address] [place] [phone] Care Team Providers Care Cemetery Laborer Name Role Phone Lance Pino Primary Care Provider REASON FOR VISIT fasting labs Encounters Encounter Location Date Provider Diagnosis Lance Pino MD [address] [place] [phone] 06/30/2023 Lance Pino Blood tests for routine [...] * Alexandr AMESinDOB: 6 (39 yo M)Acc No.[id number]:06/30/2023 Progress Note Patient:?Cody AMES Provider:?Lance Pino MD :1985???Age:38 Y???Sex:Male Ty e:06/30/2023 Address:[address] [place], [place] [phone] Subjective: * Chief Complaints: * ???1. Fasting labs. * Medical History:? Objective: * Vitals:? Assessment: * Assessment: 1.?Blood tests for routine g eneral physical examination - Z00.00 (Primary)???2.?Testosterone deficiency in male - E29.1??? Plan: * Treatment: 2.?Testosterone deficiency i n male?LAB: Complete Blood Count Auto Diff (Order Cancelled) ?LAB: Comprehensive [place]. Panel Fast (Order Cancelled) ?LAB: Lipid Panel [...] MD Date:?0 06/30/2023 Generated for Fernando frankel/Saniya/Gerarditting on:?08/15/2024 11:59 AM EDT
--- OUTSIDE RECORDS SUMMARY | 2024-08-15 12:00 | XMS_ITS ---
Author Organization Lance Pino MD Address [address] [place] [phone] Care Team Providers Care Glove Finisher Name Role Phone Lance Pino Primary Care Provider REASON FOR VISIT 6 week Encounters Encounter Location Date Provider Diagnosis Lance Pino MD [address] [place] [phone] 07/21/2023 Lance Pino Plan Of Treatment No Information Progress Notes * Alexandr AMESinDOB: 6 (39 yo M)Acc No.[id number]:07/21/2023 Progress Notes Patient:?Cody AMES Provider:?Lance Pino MD :1985???Age:38 Y???Sex:Male Ty e:07/21/2023 Address:[address] [place], [place] [phone] Subjective: * Chief Complaints: * ???1. 6 week. * Medical History:? Objective: * Vitals:? Assessment: Plan: * Treatment: * * The named appointment provid er may or may not be the originator of this progress note, and it is not deemed complete until electronically signed by the appointment provider. Sign off status: Pending * Provider:?Lance Pino MD Date:?0 07/21/2023 Generated for Fernando frankel/Saniya/Gerarditting on:?08/15/2024 12:00 PM EDT
--- OUTSIDE RECORDS SUMMARY | 2024-08-15 12:00 | XMS_ITS ---
Author Name [facility] Organization [facility] Encounters Encounter Type Encounter Reason Primary Diagnosis Location Date Ambulatory [place] [facility] [place] 06/08/2024 Care Team Organization Name Specialty Phone Email Start Date End Da te [employer] 06/20/2024 07/14/2024 [employer] 06/08/2024 [place] [facility] NO PCP Primary Care 06/08/2024
--- OUTSIDE RECORDS SUMMARY | 2024-08-15 12:00 | XMS_ITS ---
Author Organization Lance Pino MD Address [address] [place] [phone] Care Team Providers Care Detective Youth Bureau Name Role Phone Lance Pino Primary Care Provider [phone] Allergies No Known Allergies REASON FOR VISIT [...] Pino MD [address] [place] [phone] 07/05/2023 Lance Pino Plan Of Treatment No Information Progress Notes * Alexandr AMESinDOB: 6 (39 yo M)Acc No.[id number]:07/05/2023 Progress Notes Patient:?Cody AMES Provider:?Lance Pino MD :1985???Age:38 Y???Sex:Male Ty e:07/05/2023 Address:[address] [place], [place] [phone] Subjective: * Chief Complaints: * ???1. Annual. [...] Pino MD Date:?0 07/05/2023 Generated for Fernando frankel/Saniya/Gerarditting on:?08/15/2024 11:59 AM EDT History and Physical Notes * HPI (History [...]
--- OUTSIDE RECORDS SUMMARY | 2024-08-15 12:00 | XMS_ITS | Patient Health Record ---
Author Organization Lance Pino MD Address [address] [place] [phone] Care Team Providers Care Commissary Helper Name Role Phone Lance Pino Primary Care Provider [phone] Allergies No Known Allergies Reason For Referral No Information Medications Medication [...] W/U Status Risk Notes Problem Asthmatic bronchitis (431946022) Asthmatic bronchitis (J45.909) Active confirmed Problem 8526135 Gynecomastia (N62) Active confirmed Problem 549354101 Mild intermittent asthma without complication (J45.20) Active confirmed Problem 3202189396110 Testosterone deficiency in male (E29.1) Active confirmed Problem 247545462 Abnormal MRI (R93.89) Active confirmed Plan Of Treatment Pending Test Test Name Order Date PROFILE, FASTING 06/02/2017 LIPOPROTEIN FRACTIONATION (LIPID PANEL) 06/02/2017 CBC w DIFF 06/02/2017 URINALYSIS (UA) 06/02/2017 Insurance Providers Payer Name Payer Address Payer Phone Subscriber Number Group Number Insured Name Patient Relationship to Insured Coverage Start Date Coverage End Date [address] [place] [address] [place] [phone] [id number] Cody Trujillo Self - patient is the insured
--- NOTE | 2024-08-16 10:57 | HO.ANESPROP2 ---
Documented by User: Emely Hermosillo NP 08/16/24 10:57 HPI - Anesthesia Eval Consult details Narrative: 39yo M for Bilateral Therapeutic C4,C5,C6 Medial Branch Block [facility] Active Problems Active Problems: All Active Problems Spondylosis of cervical region without myelopathy or radiculopathy (Acute) Cervical spondylosis (Acute) Degenerative disc disease, cervical (Acute) Cervicalgia (Acute) Cervical disc herniation (Acute) Cervical radiculopathy (Acute) Myofascial pain (Acute) Cervical radiculitis (Acute) Ring avulsion injury of finger of right hand (Acute) Radial collateral ligament sprain (Acute) Bronchitis (Acute) Asthma exacerbation (Acute) Neck strain (Acute) Reactive airway disease (Acute) Oral candidiasis (Acute) Past Medical History Medical History Cervical disc herniation Cervical radiculopathy Social History Social History Patient Tobacco Use Status: Never used Tobacco Second Hand Smoke Exposure: No Use of substances other than those prescribed or required for medical reasons: Yes Substance Use Frequency: Daily Have you been hit, kicked, punched, or otherwise hurt by someone within the past year? If so, by whom?: No Are you DNR?: No Advance Directives: No Advance Directives Information Provided: Yes Advance Directives on File: No Poor oral hygiene: No Current occupation: [employer] 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 Meds Allergies Allergy/AdvReac Type Severity Reaction Status Date / Time No Known Allergies Allergy Verified 05/08/24 10:06 Home Medications ?Medication ?Instructions ?Recorded ?Confirmed ?Last Taken ?Type albuterol sulfate 90 mcg/actuation 2 puff inhalation Q4-6H PRN 04/30/21 05/01/24 Unknown History aerosol inhaler Assessment and Plan Assessment Anesthesia Assessment: Chart Reviewed Documented by User: Lefty Garcia MD 08/17/24 08:46 PMFSH Past Medical History Medical History Cervical disc herniation Cervical radiculopathy Family History Family history of problems with anesthesia: No Surgical History History of Problems with Anesthesia: No Social History Social History Patient Tobacco Use Status: Never used Tobacco Second Hand Smoke Exposure: No Use of substances other than those prescribed or required for medical reasons: Yes Substance Use Frequency: Daily Have you been hit, kicked, punched, or otherwise hurt by someone within the past year? If so, by whom?: No Are you DNR?: No Advance Directives: No Advance Directives Information Provided: Yes Advance Directives on File: No Poor oral hygiene: No Current occupation: [employer] 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 Meds Allergies Allergy/AdvReac Type Severity Reaction Status Date / Time No Known Allergies Allergy Verified 05/08/24 10:06 Home Medications ?Medication ?Instructions ?Recorded ?Confirmed ?Last Taken ?Type albuterol sulfate 90 mcg/actuation 2 puff inhalation Q4-6H PRN 04/30/21 05/01/24 Unknown History aerosol inhaler Exam Airway Mallampati Class: I TM Dist: >3cm Neck ROM: Full Loose/Missing/Broken Teeth: No Heart: ok Lungs: ok Assessment and Plan Assessment Anesthesia Assessment: Anesthesia Plan Discussed Final Anesthetic Review Family History of Problems with Anesthesia: No History of Problems with Anesthesia: No NPO: Yes ASA Class: II Final Preanesthetic Review: No Changes in Pt Med Stat, Meds/Allgs Chart Reviewed, Consent Obtained/Reviewed and Anes Risks/Benef Reviewed Patient Risk: Low Procedure Risk: Intermediate Anesthetic Plan Anesthetic Plan: MAC: and Agree w/ Assess. and Plan Disposition: Standard PACU
--- NOTE | ~2024-08-17 | FL_ITS ---
EXAMINATION: FL GUIDANCE ONLY HISTORY: INJECTION/CERVICAL COMPARISON: None available. TECHNIQUE: Fluoroscopy time: 52.5 seconds. Cumulative Dose: 4.3707 mGy. DAP: 1.9012 mGym2 Images: 8. FINDINGS: Fluoroscopic spot films of the cervical spine in the AP projection demonstrate needles and contrast material in the neck bilaterally. FL/FL guidance in OR IMPRESSION: Fluoroscopy during procedure. Please see procedure report for additional information. Electronically signed by: Blake Weinstein MD 08/17/2024 11:20 AM EDT
[2024-08-17 08:30] VITALS: BMI 22.6
[2024-08-17 08:35] VITALS: BP 111/62; PULSE 76; RESP 16; TEMP 36.9; O2SAT 99
[2024-08-17] MEDS: Lactated Ringers 1,000 ML 100 ML IVCONT (08:44)
--- NOTE | 2024-08-17 09:30 | MHC.SHP ---
Pre-Procedural Eval Section A - 24 Hr Update-Section A only Date of Service: 08/17/24 The patient is an INPATIENT: No Changes since office visit: Yes Patient answered all questions The patient has been examined within 24 hours of the surgical procedure. The History & Physical has been completed within 30 days and I have reviewed it.: No Section B - Complete if H&P > 30 days Chief Complaint: Spondylosis without myelopathy or radiculopathy, Details of Present Illness: as above Relevant Family History (Specify if Yes): No Relevant Social History: None Present Medications: see Short Stay Collaborative assessment Medical History: No relevant PMH History of Previous Operations: No relevant previous surgery Allergies: Allergies Allergy/AdvReac Type Severity Reaction Status Date / Time No Known Allergies Allergy Verified 05/08/24 10:06 Review of Systems Sugical H&P ROS: Negative: Constitution, Cardiovascular, Respiratory, Neurological, Psychiatric, Hem-Onc, Allergic/Immunologic, Gastrointestinal, Genitourinary, Musculoskeletal, Integumentary, Endocrine and Eyes/Ears/Nose/Throat Exam Surgical H&P Exam: Normal: HEENT, Normal: Heart, Normal: Lungs, Normal: Extremities, Normal: Abdomen, Normal: Skin and Normal: Neurological Plan Diagnosis/Plan: Unchanged I have reviewed the history and physical and performed a pertinent physical examination on my patient. No changes have occurred unless specified. Time Spent With Patient Time: Total time managing care of this patient today ____ minutes.
[2024-08-17 10:17] VITALS: BP 124/72; PULSE 66; RESP 16; TEMP 36.9; O2SAT 98
--- NOTE | 2024-08-17 10:25 | PM.OP ---
Brief Operative Note Date of Service: 08/17/24 Pre-op diagnosis: cervical spondylosis without myelopathy or radiculopathy. Post-op diagnosis: same Procedure: bilateral Therapeutic medial branch block C4, C5, C6. Surgeon: Fred Fernando MD Anesthesia: MAC Was an [employer] Installation Manager used for this Procedure?: No Estimated blood loss (mL): 0 Condition: stable Disposition: PACU
--- NOTE | 2024-08-17 10:27 | W.PM.OPN ---
Operative Note Operative Note Date of Service: 08/17/24 Narrative: therapeutic medial branch block C4-C5- C6 bilateral. Informed consent was explained thoroughly to the patient.? All questions about benefits and risks for the procedure were answered. The patient was taken to the operating room where he was positioned prone on operating table. ASA monitors applied and the patient will minimally sedated. Time-out was performed delineating correct side and site of the procedure, name date of of the patient, allergies of the patient. The upper back and entire posterior neck were prepped with ChloraPrep and draped with self adhesive sterile utility towels. C-arm was brought over the operating field and picture of C4, C5, C6 vertebra were obtain on the screen. The point of interest were delineated as the lateral masses of the above-mentioned vertebra. The waistline of each lateral mass was chosen as the point of needle advancement. The projection of the point of interest to the skin was injected with small amount of lidocaine 2% mixed with ropivacaine 0.5%. After that 3 needles 3-1/2 inch long 22 gauge were inserted through the skin wheals and advanced over the point of interest 1st on the right and then on the left side. When tips of the needles gently contacted the bone injection of the contrast was performed delineating no intravascular and no intrathecal uptake of the contrast. After that small amount of ropivacaine 0.5% mixed with Kenalog no more than 1 mL was in a injected at each needle location. total dose of Kenalog was 80 mg. The patient tolerated the procedure well. Upon completion of the injections the needles were removed and sterile Band-Aids were applied. Patient was taken outside of the operating room to recovery room where he recovered uneventfully.
[2024-08-17 10:32] VITALS: BP 115/77; PULSE 69; RESP 16; TEMP 36.6; O2SAT 96
== END 2024-08-17 10:59 | disposition home or self-care (01) ==
PROVIDERS: PCP Internal Medicine; Visit Provider Anesthesiology
PROC: (CPT 64490; principal; 2024-08-17 10:00)
DX: M47.812 Spondylosis without myelopathy or radiculopathy, cervical region (principal); M50.30 Other cervical disc degeneration, unspecified cervical region; M54.12 Radiculopathy, cervical region; M50.20 Other cervical disc displacement, unspecified cervical region; M79.18 Myalgia, other site
CPT/HCPCS: 64490; 64491; J2003; J2250; J2795; J3010; J3301; Q9967

== ENCOUNTER → 2024-08-17 08:18 | Outpatient (BNV) | payer OTHER, SELFPAY | PROVIDERS: PCP Internal Medicine; Visit Provider Anesthesiology | DX: M47.812 Spondylosis without myelopathy or radiculopathy, cervical region (principal) | CPT/HCPCS: 64490; 64491 ==

== ENCOUNTER 2024-09-21 08:56 | Outpatient (AMB) | payer OTHER, SELFPAY ==
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
[2024-09-21 09:01] VITALS: BP 123/75; PULSE 85; O2SAT 100; BMI 22.6
--- OUTSIDE RECORDS SUMMARY | 2024-09-21 09:19 | XMS_ITS | Patient Health Record ---
Author Organization Lance Pino MD Address [address] [place] [phone] Care Team Providers Care Sample Grinder Name Role Phone Lance Pino Primary Care Provider Allergies No Known Allergies Results Component Value Reference Range Notes FL guidance in OR Reviewed date:08/17/2024 12:11:07 PM Interpretation: Performing Lab: Notes/Report: [address] [address] Fluoroscopy Report Signed Patient: Cody Trujillo MR#: [id number] 48 : 1985 Acct:[id number] Age/Sex: 39 / M ADM Date: 08/17/24 Loc: [facility] Attending Dr: Fred Fernando MD Ordering Physician: Fred Fernando MD Date of Service: 08/17/24 Procedure(s): FL guidance in OR Accession Number(s): [id number] cc: Lance Pino MD; Fred Fernando MD EXAMINATION: FL GUIDANCE ONLY HISTORY: INJECTION/CERVICAL COMPARISON: None available. TECHNIQUE: Fluoroscopy time: 52.5 seconds. Cumulative Dose: 4.3707 mGy. DAP: 1.9012 mGym2 Images: 8. FINDINGS: Fluoroscopic spot films of the cervical spine in the AP projection demonstrate needles and contrast material in the neck bilaterally. FL/FL guidance in OR IMPRESSION: Fluoroscopy during procedure. Please see procedure report for additional information. Electronically signed by: Blake Weinstein MD 08/17/2024 11:20 AM EDT RP Dictated By: Blake Weinstein MD Signed By: <Electronically signed by Blake Weinstein MD in OV> 08/17/24 1120 DD/ TD/TT: 08/17/24 [address] [employer]pper: [place] [id number] Fluoroscopy Report Signed Patient: David Trujillo MR#: [id number] 49 : 1985 Acct:[id number] Age/Sex: 39 / M ADM Date: 08/17/24 Loc: [facility] Attending Dr: Fred Fernando MD Ordering Physician: Fred Fernando MD Date of Service: 08/17/24 Procedure(s): FL guidance in OR Accession Number(s): [id number] cc: Lance Pino MD; Fred Fernando MD EXAMINATION: FL GUIDANCE ONLY HISTORY: INJECTION/CERVICAL COMPARISON: None available. TECHNIQUE: Fluoroscopy time: 52.5 seconds. Cumulative Dose: 4.3707 mGy. DAP: 1.9012 mGym2 Images: 8. FINDINGS: Fluoroscopic spot fi lms of the cervical spine in the AP projection demonstrate needles and contrast material in the neck bilaterally. F L/FL guidance in OR IMPRESSION: Fluoroscopy during p rocedure. Please see procedure report for additional information. Electronically manas d by: Blake Weinstein MD 08/17/2024 11:20 AM EDT RP Dictated By: Blake Weinstein MD Signed By: <Kassandra palomares signed by Blake Weinstein MD in OV> 08/17/24 1120 DD/ TD/TT: 08/17/24 1008 [employer] Clipper: Reason For Referral No Information Medications Medication [...] W/U Status Risk Notes Problem Asthmatic bronchitis (119352240) Asthmatic bronchitis (J45.909) Active confirmed Problem 0530881 Gynecomastia (N62) Active confirmed Problem 366942716 Mild intermittent asthma without complication (J45.20) Active confirmed Problem Sialadenitis (24095594) Sialadenitis (K11.20) Active confirmed Problem 6390381666159 Testosterone deficiency in male (E29.1) Active confirmed Problem 404351868 Abnormal MRI (R93.89) Active confirmed Vital Signs Blood pressure diastolic 70 mm Hg 08/16/2024 mukesh ght is is up 4 pounds since 06-10-23 Height 64.5 in 08/16/2024 weight is is up 4 pounds since 06-10-23 Blood pressure systolic 120 mm Hg 08/16/2024 weig ht is is up 4 pounds since 06-10-23 Weight 140 lbs 08/16/2024 weight is is up 4 pounds since 06-10-23 BMI 23.66 kg/m2 08/16/2024 weight is is up 4 pounds since 06-10-23 Encounters Encounter Location Date Provider Diagnosis Lance Pino MD [address] [place] [address] Drive [address] [place], [place] [phone] 08/16/2024 Lance Pino Sialadenitis K11.20 Assessments Encounter Date Diagnosis (ICD Code) Assessment Notes Treatment Notes Treatment Clinical Notes Section Notes 08/16/2024 Sialadenitis (ICD-10 - K11.20) lots of fluid and sour candies and if not better in a week to return, patient verba;lized understanding of instruction and directions for medication Plan Of Treatment Pending Test Test Name Order Date PROFILE, FASTING 06/02/2017 LIPOPROTEIN FRACTIONATION (LIPID PANEL) 06/02/2017 CBC w DIFF 06/02/2017 URINALYSIS (UA) 06/02/2017 Insurance Providers Payer Name Payer Address Payer Phone Subscriber Number Group Number Insured Name Patient Relationship to Insured Coverage Start Date Coverage End Date [employer] [address] [place], [place] [id number] Cody Trujillo Self - patient is the insured
== END 2024-09-21 09:23 | disposition home or self-care (01) ==
LOC: HO.PMC 08:57
PROVIDERS: PCP Internal Medicine; Visit Provider Nurse Practitioner Family
DX: M54.12 Radiculopathy, cervical region (principal); M50.20 Other cervical disc displacement, unspecified cervical region; M50.30 Other cervical disc degeneration, unspecified cervical region; M47.812 Spondylosis without myelopathy or radiculopathy, cervical region
CPT/HCPCS: 99214; G2211

== ENCOUNTER → 2024-09-21 08:56 | Outpatient (BNVA) | payer OTHER, SELFPAY | PROVIDERS: PCP Internal Medicine; Visit Provider Nurse Practitioner Family | DX: M47.812 Spondylosis without myelopathy or radiculopathy, cervical region (principal); M54.12 Radiculopathy, cervical region; M50.20 Other cervical disc displacement, unspecified cervical region; M50.30 Other cervical disc degeneration, unspecified cervical region | CPT/HCPCS: 99212 ==

== ENCOUNTER → 2024-09-29 19:27 | Outpatient (BNV) | payer OTHER, SELFPAY | PROVIDERS: PCP Internal Medicine; Visit Provider Radiology Diagnostic Radiology | DX: M50.222 Other cervical disc displacement at C5-C6 level (principal); M50.223 Other cervical disc displacement at C6-C7 level | CPT/HCPCS: 72141 ==

== ENCOUNTER 2024-09-29 19:28 | Outpatient (REF) | payer OTHER, SELFPAY ==
--- NOTE | ~2024-09-29 | MR_ITS ---
CLINICAL HISTORY: M54.12 - Radiculopathy, cervical region Cervical MRI without contrast: Comparison: None. Findings: Paravertebral soft tissues are unremarkable. Craniocervical junction is aligned. No fractures and no subluxations. Bone marrow signal intensity and cellularity is normal C1-C2: No malalignment. Ligaments are intact. C2-C3: No disc protrusion. No foraminal stenosis. C3-C4: There is uncovertebral joint hypertrophy and mild posterior broad-based bulging of the intervertebral disc. No foraminal stenosis. C4-C5: There is uncovertebral joint hypertrophy and mild posterior broad-based disc bulging with no foraminal stenosis. C5-C6: There is uncovertebral joint hypertrophy and posterior disc bulging and moderate foraminal stenosis on the left. C6-C7: There is uncovertebral joint hypertrophy and central left intraforaminal 3.6 mm disc protrusion Impression: Multilevel degenerative uncovertebral joint and disc bulging with left side moderate canal stenosis at C5-6 and C6-7 Spinal cord signal and morphology is normal with no signs of myelopathy. This document has been electronically signed by: Anton Zamora MD on 09/29/2024 20:38:21
== END 2024-09-29 19:29 | disposition home or self-care (01) ==
LOC: HO.MRI 19:28
PROVIDERS: PCP Internal Medicine; Visit Provider Nurse Practitioner Family
DX: M54.12 Radiculopathy, cervical region (principal); M50.30 Other cervical disc degeneration, unspecified cervical region; M47.812 Spondylosis without myelopathy or radiculopathy, cervical region; M50.20 Other cervical disc displacement, unspecified cervical region
CPT/HCPCS: 72141

== ENCOUNTER 2024-10-04 14:42 | Outpatient (AMB) | payer OTHER, SELFPAY ==
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
[2024-10-04 14:46] VITALS: BP 117/69; PULSE 85; O2SAT 100; BMI 22.0
--- OUTSIDE RECORDS SUMMARY | 2024-10-04 17:52 | XMS_ITS | Patient Health Record ---
Author Organization Lance Pino MD Address [address] [place] [phone] Care Team Providers Care Off Premise Service Representative Name Role Phone Lance Pino Primary Care Provider Allergies No Known Allergies Results Component Value Reference Range Notes FL guidance in OR Reviewed date:08/17/2024 12:11:07 PM Interpretation: Performing Lab: Notes/Report: [address] [address] Fluoroscopy Report Signed Patient: Cody Trujillo MR#: [id number] 48 : 1985 Acct:[id number] Age/Sex: 39 / M ADM Date: 08/17/24 Loc: HO[facility] Attending Dr: Fred Fernando MD Ordering Physician: Fred Fernando MD Date of Service: 08/17/24 Procedure(s): FL guidance in OR Accession Number(s): [id number] cc: Lance Pino MD; Fred Fernando MD [...] OV> 08/17/24 1120 DD/ TD/TT: 08/17/24 1008 Chemical Plant Operator Supervisor: [address] [address] Fluoroscopy Report Signed Patient: David Trujillo MR#: [id number] 48 : 1985 Acct:[id number] Age/Sex: 39 / M ADM Date: 08/17/24 Loc: HO[facility] Attending Dr: Fred Fernando MD Ordering Physician: Fred Fernando MD Date of Service: 08/17/24 Procedure(s): FL guidance in OR Accession Number(s): [id number] cc: Lance Pino MD; Fred Fernando MD [...] OV> 08/17/24 1120 DD/ TD/TT: 08/17/24 1008 Chemical Plant Operator Supervisor: cervical spine wo con Reviewed date:09/30/2024 07:45:42 PM Interpretation: Performing Lab: Notes/Report: [address] [address] Magnetic Resonance Report Signed Patient: Cody Trujillo MR#: [id number] 48 : 1985 Acct:[id number] Age/Sex: 39 / M ADM Date: 09/29/24 Loc: HO.MRI Attending Dr: Mecca MOURA Ordering Physician: Mecca Zarco Date of Service: 09/29/24 Procedure(s): MR cervical spine wo con Accession Number(s): [id number] cc: Lance Pino MD; Mecca Zarco CLINICAL HISTORY: M54.12 - Radiculopathy, cervical region Cervical MRI without contrast: Comparison: None. Findings: Paravertebral soft tissues are unremarkable. Craniocervical junction is aligned. No fractures and no subluxations. Bone marrow signal intensity and cellularity is normal C1-C2: No malalignment. Ligaments are intact. C2-C3: No disc protrusion. No foraminal stenosis. C3-C4: There is uncovertebral joint hypertrophy and mild posterior broad-based bulging of the intervertebral disc. No foraminal stenosis. C4-C5: There is uncovertebral joint hypertrophy and mild posterior broad-based disc bulging with no foraminal stenosis. C5-C6: There is uncovertebral joint hypertrophy and posterior disc bulging and moderate foraminal stenosis on the left. C6-C7: There is uncovertebral joint hypertrophy and central left intraforaminal 3.6 mm disc protrusion Impression: Multilevel degenerative uncovertebral joint and disc bulging with left side moderate canal stenosis at C5-6 and C6-7 Spinal cord signal and morphology is normal with no signs of myelopathy. This document has been electronically signed by: Anton Zamora MD on 09/29/2024 20:38:21 Dictated By: Anton Zamora MD Signed By: <Electronically signed by Anton Zamora MD in OV> 09/29/242037 DD/ 37 TD/TT: 09/29/242037 Chemical Plant Operator Supervisor: [address] [address] Magnetic Resonance Report Signed Patient: David Trujillo MR#: [id number] 48 : 1985 Acct:[id number] Age/Sex: 39 / M ADM Date: 09/29/24 Loc: HO.MRI Attending Dr: Mecca MOURA Ordering Physician: Mecca Zarco Date of Service: 09/29/24 Procedure(s): MR arsalan hernandez spine wo con Accession Number(s): [id number] cc: Lance Pino MD; Mecca Zarco CLINICAL HISTORY: M5 4.12 - Radiculopathy, cervical region Cervical MRI without contrast: Comparison: None. Findings: Paravertebral soft t issues are unremarkable. Craniocervical junct ion is aligned. No fractures and no subluxations. Bone marrow signal i ntensity and cellularity is normal C1-C2: No malalignme nt. Ligaments are intact. C2-C3: No disc protr usion. No foraminal stenosis. C3-C4: There is unco vertebral joint hypertrophy and mild posterior broad-based bulging of the intervertebral disc. No foraminal stenosis. C4-C5: There is unco vertebral joint hypertrophy and mild posterior broad-based disc bul ging with no foraminal stenosis. C5-C6: There is unco vertebral joint hypertrophy and posterior disc bulging and moderate foramin al stenosis on the left. C6-C7: There is unco vertebral joint hypertrophy and central left intraforaminal 3.6 m m disc protrusion Impression: Multilevel degenerat ltio uncovertebral joint and disc bulging with left side moderate canal stenosis at C5-6 and C6-7 Spinal cord signal a nd morphology is normal with no signs of myelopathy. This document has be en electronically signed by: Anton Zamora MD on 09/29/2024 20:38:21 Dictated By: Anton Zamora MD Signed By: <Kassandra palomares signed by Anton Zamora MD in OV> 09/29/242037 DD/ 37 TD/TT: 09/29/242037 Chemical Plant Operator Supervisor: Reason For Referral No Information Medications Medication [...] W/U Status Risk Notes Problem Asthmatic bronchitis (935058766) Asthmatic bronchitis (J45.909) Active confirmed Problem 4082083 Gynecomastia (N62) Active confirmed Problem 477247917 Mild intermittent asthma without complication (J45.20) Active confirmed Problem Sialadenitis (K11.20) Active confirmed Problem 7603695135979 Testosterone deficiency in male (E29.1) Active confirmed Problem 400904800 Abnormal MRI (R93.89) Active confirmed Vital Signs [...] Date Provider Diagnosis Lance Pino MD [address] [place], [place] [phone] 08/16/2024 Lance Pino Sialadenitis K11.20 Assessments Encounter Date Diagnosis (ICD Code) Assessment Notes Treatment Notes Treatment Clinical Notes Section Notes 08/16/2024 Sialadenitis (ICD-10 - K11.20) lots of fluid and sour candies and if not better in a week to return, patient verba;steff understanding of instruction and directions for medication Plan Of Treatment Pending Test Test Name Order Date PROFILE, FASTING 06/02/2017 LIPOPROTEIN FRACTIONATION (LIPID PANEL) 06/02/2017 CBC w DIFF 06/02/2017 URINALYSIS (UA) 06/02/2017 Insurance Providers Payer Name Payer Address Payer Phone Subscriber Number Group Number Insured Name Patient Relationship to Insured Coverage Start Date Coverage End Date [employer]IELD [address] [place], [place] [phone] [id number] Cody Trujillo Self - patient is the insured
== END 2024-10-04 15:18 | disposition home or self-care (01) ==
LOC: HO.PMC 14:42
PROVIDERS: PCP Internal Medicine; Visit Provider Nurse Practitioner Family
DX: M54.12 Radiculopathy, cervical region (principal); M50.20 Other cervical disc displacement, unspecified cervical region; M50.30 Other cervical disc degeneration, unspecified cervical region
CPT/HCPCS: 99214; G2211

== ENCOUNTER → 2024-10-04 14:42 | Outpatient (BNVA) | payer OTHER, SELFPAY | PROVIDERS: PCP Internal Medicine; Visit Provider Nurse Practitioner Family | DX: Z71.2 Person consulting for explanation of examination or test findings (principal); M54.12 Radiculopathy, cervical region; M54.2 Cervicalgia | CPT/HCPCS: 99212 ==

== ENCOUNTER 2025-01-06 10:23 | Emergency (ER) | payer BC, SELFPAY ==
--- OUTSIDE RECORDS SUMMARY | 2023-07-21 13:00 | XMS_ITS ---
Author Organization Lance Pino MD Address [address] [place] [address] [phone] Care Team Providers Care Placement Specialist Name Role Phone Lance Pino Primary Care Provider REASON FOR VISIT 6 week Encounters Encounter Location Date Provider Diagnosis Lance Pino MD [address] [place] [address] [phone] 07/21/2023 Lance Pino Plan Of Treatment No Information Progress Notes * Alexandr AMESinDOB: 6 (39 yo M)Acc No.[id number]:07/21/2023 Progress Notes Patient: Cody OLIVERA Provider: Georgette Pino MD :1985 A ge:38 Y S ex:Male Date:07/21/2023 Address:[address] [place], [place] [phone] Subjective: * Chief Complaints: * 1 . 6 week. * Medical History: Objective: * Vitals: Assessment: Plan: * Treatment: * * The named appointment provid er may or may not be the originator of this progress note, and it is not deemed complete until electronically signed by the appointment provider. Sign off status: Pending * Provider: Georgette Pino MD Date: 0 07/21/2023 Generated for Printi ng/Saniya/Gerarditting on: 0 01/06/2025 10:50 AM EDT
--- OUTSIDE RECORDS SUMMARY | 2024-08-16 07:30 | XMS_ITS ---
Author Organization Lance Pino MD Address [address] [place] [id number] Care Team Providers Care Wire Spinner Name Role Phone Lance Pino Primary Care Provider [phone] Allergies No Known Allergies REASON FOR VISIT SWOLLEN GLAND LEFT SIDE woke up with the swelling Medications Medication SIG (Take, Route, Frequency, Duration) Notes Start Date End Date Status Cephalexin 500 MG 1 capsule Orally 3 t imes a day for 10 days 08/16/2024 Active Gabapentin 300 MG 1 capsule Orally Onc e a day Active ProAir HFA 108 (90 Base) MCG/ACT 2 puffs as needed Inhalation every 4 hrs for 30 days Active Flovent HFA 110 MCG/ACT 1 puff Inhalatio n Twice a day for 30 days 03/19/2016 Not-Taking Problems Problem Type SNOMED Code ICD Code Onset Dates Problem Status W/U Status Risk Notes Problem Sialadenitis (86785348) Sialadenitis (K11.20) Active confirmed Vital Signs Blood pressure systolic 120 mm Hg 08/17/19 25 Blood pressure diastolic 70 mm Hg 025 Height 64.5 in 08/16/2024 Weight 140 lbs 08/16/2024 BMI 23.66 kg/m2 08/16/2024 weight is is up 4 pounds sin ce 06-10-23 Encounters Encounter Location Date Provider Diagnosis Lance Pino MD [address] [place], [place] [id number] 08/16/2024 Lance Pino Sialadenitis K11.20 Assessments Encounter Date Diagnosis (ICD Code) Assessment Notes Treatment Notes Treatment Clinical Notes Section Notes 08/16/2024 Sialadenitis (ICD-10 - K11.20) lots of fluid and sour candies and if not better in a week to return, patient rachel understanding of instruction and directions for medication Plan Of Treatment Medication Medication Name Sig Start Date Stop Date Notes Cephalexin 500 MG 1 capsule Orally 3 t imes a day for 10 days 08/16/2024 Treatment Notes Assessment Notes Sialadenitis lots of fluid and so ur candies and if not better in a week to return, patient [place] understanding of instruction and directions for medication Progress Notes * Alexandr AMESinDOB: 6 (39 yo M)Acc No.[id number]:08/16/2024 Progress Notes Patient: Cody OLIVERA Provider: Georgette Pino MD :1985 A ge:39 Y S ex:Male Date:08/16/2024 Address:[address] [place] [address], [id number] Subjective: * Chief Complaints: * S WOLLEN GLAND LEFT SIDE woke up with the swelling * HPI: S ymptom(s): patient is a 39 yo male here with complaint of sudden swelling in left parotid gland/ got a lot bigger with eating got suddenly bigger/. * ROS: G eneral/Constitutional: Denies C hills. D enies F atigue. D enies F ever. D enies H eadache. E NT: Patient denies d ecreased sense of smell, any loss of taste, sore throat. D enies S ore throat. R espiratory: Denies C ough. D enies S hortness of breath at rest. D enies S hortness of breath with exertion. G astrointestinal: Denies D iarrhea. D enies N ausea. M usculoskeletal: Patient denies m uscle aches. P eripheral Vascular: Patient denies r ed and blue toes. * Medical History: * Surgical History: * Hospitalization/Major Diagno stic Procedure: * Medications: T akingGabapentin 300 MG Capsule 1 capsule Orally Once a day ProAir HFA 108 (90 Base) MCG/ACT Aerosol Solution 2 puffs as needed Inhalation every 4 hrs Taking Gabapentin 300 MG Capsule 1 capsule Orally Once a day Taking ProAir HFA 108 (90 Base) MCG/ACT Aerosol Solution 2 puffs as needed Inhalation every 4 hrs Not-Taking/PRNFlovent HFA 110 MCG/ACT Aerosol 1 puff Inhalation Twice a day Medication List reviewed and reconciled with the patientNot-Taking/PRN Flovent HFA 110 MCG/ACT Aerosol 1 puff Inhalation Twice a day Medication List reviewed and reconciled with the patient * Allergies: N .K.D.A.yes[Allergies Verified] Objective: * Vitals: H t: 64.5, Wt: 140, BMI:23.66, BP:120/70, Wt-k.5. weight is is up 4 pounds since 06-10-23. * Examination: G eneral Examination: GENERAL APPEARANCE: a lert, well hydrated, in no distress.? HEAD: s welling in left parotid gland that is non tender.? Assessment: * Assessment: 1. S ialadenitis - K11.20 (Primary) Plan: * Treatment: * Procedure Codes: * * Sign off status: Completed true * Provider: Georgette Pino MD Date: 0 08/16/2024 Generated for Fernando frankel/Saniya/Gerarditting on: 0 01/06/2025 10:50 AM EDT History and Physical Notes * HPI (History of Present Illness) Category Sub-Category Detail Notes Category Not es Symptom(s) patient is a 39 yo male here with complaint of sudden swelling in left parotid gland/ got a lot bigger with eating got suddenly bigger/ Examination Category Sub-Category Detail Notes Category Not es General Examination GENERAL APPEARANCE: alert, w ell hydrated, in no distress HEAD: swelling in left par otid gland that is non tender
--- NOTE | ~2025-01-06 | CT_ITS ---
CLINICAL HISTORY: Dizziness, off balance, rule out bleed, stroke, --- Additional Notes or Special Instructions: Mass effect CT head without contrast. COMPARISON: CT head dated 02/27/23 at 16:12 EST FINDINGS: The visualized paranasal sinuses are clear. The mastoid air cells are clear. No calvarial fracture. No evidence for mass or mass effect. No intracranial hemorrhage or abnormal extra-axial fluid collection. No evidence of hydrocephalus. The basilar cisterns are patent. Posterior fossa appears unremarkable. IMPRESSION: 1. No acute intracranial findings. Specifically, no evidence of intracranial hemorrhage. This document has been electronically signed by: Lucas Taylor MD on 01/06/2025 13:14:50
[2025-01-06 10:27] VITALS: BP 110/69; PULSE 70; RESP 18; TEMP 36.6; O2SAT 99; BMI 23.3
--- OUTSIDE RECORDS SUMMARY | 2025-01-06 10:50 | XMS_ITS | Patient Health Record ---
Author Organization Lance Pino MD Address [address] [place] [phone] Care Team Providers Care Channel Turner Name Role Phone Lance Pino Primary Care Provider Allergies No Known Allergies Results Component Value Reference Range Notes FL guidance in OR Reviewed date:08/17/2024 12:11:07 PM Interpretation: Performing Lab: Notes/Report: [address] [address] Fluoroscopy Report Signed Patient: Cody Trujillo MR#: [id number] 48 : 1985 Acct:[id number] Age/Sex: 39 / M ADM Date: 08/17/24 Loc: HO[facility] Attending Dr: Fred Fernando MD Ordering Physician: Fred Fernando MD Date of Service: 08/17/24 Procedure(s): FL guidance in OR Accession Number(s): [id number] cc: Lance Pino MD; Fred Fernando MD [...] OV> 08/17/24 1120 DD/ TD/TT: 08/17/24 1008 Sergeant Of Officers: [address] [address] Fluoroscopy Report Signed Patient: David Trujillo MR#: [id number] 48 : 1985 Acct:[id number] Age/Sex: 39 / M ADM Date: 08/17/24 Loc: HO[facility] Attending Dr: Fred Fernando MD Ordering Physician: Fred Fernando MD Date of Service: 08/17/24 Procedure(s): FL guidance in OR Accession Number(s): [id number] cc: Lance Pino MD; Fred Fernando MD [...] OV> 08/17/24 1120 DD/ TD/TT: 08/17/24 1008 Sergeant Of Officers: cervical spine wo con Reviewed date:09/30/2024 07:45:42 PM Interpretation: Performing Lab: Notes/Report: [address] [address] Magnetic Resonance Report Signed Patient: Cody Trujillo MR#: [id number] 48 : 1985 Acct:[id number] Age/Sex: 39 / M ADM Date: 09/29/24 Loc: HO.MRI Attending Dr: Mecca MOURA Ordering Physician: Mecca Zarco Date of Service: 09/29/24 Procedure(s): MR cervical spine wo con Accession Number(s): [id number] cc: Lance Pino MD; Mecca Zarco CLINICAL [...] in OV> 09/29/242037 DD/ 37 TD/TT: 09/29/242037 Sergeant Of Officers: [address] [address] Magnetic Resonance Report Signed Patient: David Trujillo MR#: [id number] 48 : 1985 Acct:[id number] Age/Sex: 39 / M ADM Date: 09/29/24 Loc: HO.MRI Attending Dr: Mecca MOURA Ordering Physician: Mecca Zarco Date of Service: 09/29/24 Procedure(s): MR arsalan hernandez spine wo con Accession Number(s): [id number] cc: Lance Pino MD; Mecca Zarco CLINICAL [...] m m disc protrusion Impression: Multilevel degenerat lito uncovertebral joint and disc bulging with left side moderate canal stenosis at C5-6 and C6-7 Spinal cord signal a nd morphology is normal with no signs of myelopathy. This document has be en electronically signed by: Anton Zamora MD on 09/29/2024 20:38:21 Dictated By: Anton Zamora MD Signed By: <Kassandra palomares signed by Anton Zamora MD in OV> 09/29/242037 DD/ 37 TD/TT: 09/29/242037 Sergeant Of Officers: Reason For Referral No Information Medications Medication [...] W/U Status Risk Notes Problem Asthmatic bronchitis (558322844) Asthmatic bronchitis (J45.909) Active confirmed Problem 6995384 Gynecomastia (N62) Active confirmed Problem 960877984 Mild intermittent asthma without complication (J45.20) Active confirmed Problem Sialadenitis (84271079) Sialadenitis (K11.20) Active confirmed Problem 6888376738144 Testosterone deficiency in male (E29.1) Active confirmed Problem 243324956 Abnormal MRI (R93.89) Active confirmed Vital Signs [...] Location Date Provider Diagnosis Lance Pino MD [address] [place] [address] [address] [place], [place] [phone] 08/16/2024 Lance Pino Sialadenitis K11.20 Assessments Encounter [...] [employer] [address] [place], [place] [phone] [id number] Cody Trujillo Self - patient is the insured
--- OUTSIDE RECORDS SUMMARY | 2025-01-06 10:50 | XMS_ITS ---
Author Name [facility] Organization Unknown Encounters Encounter Type Encounter Reason Primary Diagnosis Location Date Ambulatory [facility] 06/08/2024 Care Team Organization Name Specialty Phone Email Start Date End Da te [facility] 06/20/2024 07/14/2024 [facility] 06/08/2024 [place] [facility] NO PCP Primary Care 06/08/2024
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
--- NOTE | 2025-01-06 11:21 | ECG_ITS ---
Test Reason : in his Blood Pressure : */* mmHG Vent. Rate : 66 BPM Atrial Rate : 66 BPM P-R Int : 134 ms QRS Dur : 100 ms QT Int : 396 ms P-R-T Axes : 24 -11 19 degrees QTcB Int : 415 ms Normal sinus rhythm Normal ECG No previous ECGs available Referred By: Dylan Camp Electronically Signed By: Adonis Angelo
[2025-01-06 12:19] LABS: MANUAL DIFF FLAG NO
[2025-01-06 12:23] LABS: Hematocrit 46.7 % (42.0-52.0); Hemoglobin 16.8 g/dl (14.0-18.0); Imm Gran Abs Auto 0.02 X10*3/uL (0.00-0.03); Imm Gran Pct Auto 0.3 % (0.0-0.4); Lymphocytes Absolute Auto 0.8 X10*3/uL (1.2-4.9); Mean Corpuscular HGB Conc 36.0 g/dl (31.0-36.0); Mean Corpuscular Hemoglobin 31.5 pg (27.0-33.0); Mean Corpuscular Volume 87.6 fL (80.0-98.0); NRBC Abs Auto 0.000 X10*3/uL (0.0-0.012); NRBC Pct Auto 0.0 /100WBC (0.0-0.2); Platelet Count 202 X10*3/uL (160-400); Red Blood Count 5.33 X10*6/uL (4.60-5.80); White Blood Count 6.7 X10*3/uL (4.8-10.8)
[2025-01-06 12:40] LABS: Alanine Aminotransferase 21 U/L (0-40); Albumin Level 4.5 g/dL (3.5-5.0); Alkaline Phosphatase 62 U/L (39-117); Anion Gap 11 (12-20); Aspartate Amino Transferase 21 U/L (5-37); Blood Urea Nitrogen 13 mg/dL (9-16); Calcium 9.2 mg/dL (8.4-10.2); Carbon Dioxide 24 mmol/L (22-29); Chloride 108 mmol/L (96-108); Creatinine Clr Calc Pharmacy 94.7; Estimated Glomerular Filt Rate > 60; Potassium 4.3 mmol/L (3.3-5.1); Sodium 139 mmol/L (135-145); Total Protein 6.8 g/dL (6.5-8.0)
[2025-01-06 13:13] LABS: Troponin-I High Sensitivity < 2.7 ng/L (<3.5-35.0)
[2025-01-06 13:52] VITALS: BP 112/62; PULSE 72; RESP 16; TEMP 36.6; O2SAT 100
== END 2025-01-06 13:52 | disposition home or self-care (01) ==
PROVIDERS: Emergency Provider Emergency Medicine Emergency Medical Services; PCP Internal Medicine
DX: R27.0 Ataxia, unspecified (principal); R11.2 Nausea with vomiting, unspecified; Z79.899 Other long term (current) drug therapy
CPT/HCPCS: 36415; 70450; 80053; 84484; 85025; 93005; 99284

== ENCOUNTER → 2025-01-06 11:21 | Outpatient (BNV) | payer BC, SELFPAY | PROVIDERS: Emergency Provider Emergency Medicine Emergency Medical Services; PCP Internal Medicine; Visit Provider Internal Medicine Cardiovascular Disease | DX: R42 Dizziness and giddiness (principal) | CPT/HCPCS: 93010 ==

== ENCOUNTER → 2025-01-06 11:21 | Outpatient (BNV) | payer BC, SELFPAY | PROVIDERS: Emergency Provider Emergency Medicine Emergency Medical Services; PCP Internal Medicine; Visit Provider Radiology Diagnostic Radiology | DX: R42 Dizziness and giddiness (principal) | CPT/HCPCS: 70450 ==